=== PATIENT | female | born 1980 | race Caucasian/White ===

== ENCOUNTER 2023-06-21 14:44 | Emergency (ER) | payer BC, SELFPAY ==
[2023-06-21 14:46] VITALS: BP 112/82; PULSE 60; RESP 18; TEMP 36.6; O2SAT 98; BMI 23.3
--- NOTE | 2023-06-21 14:59 | XR_ITS ---
FINAL REPORT CLINICAL HISTORY: syncope smoker since age 14 COMPARISON: None FINDINGS: A single portable view of the chest was obtained. The heart size and pulmonary vascularity are within normal limits. The mediastinum is within normal limits. No acute pulmonary abnormality is identified. The bony thorax is intact. IMPRESSION: No active cardiopulmonary disease. Reviewed, Interpreted and Dictated by Chaka Whitt III, MD Transcribed by Parvin Guzman Authenticated and [facility]
--- NOTE | 2023-06-21 14:59 | CT_ITS ---
FINAL REPORT CLINICAL HISTORY: fall, head trauma, syncope COMPARISON: 06/12/2023 FINDINGS: Axial images of the head were obtained without contrast. Coronal and sagittal reformatted images were also obtained.This study was performed with techniques to keep radiation doses as low as reasonably achievable (ALARA). Individualized dose reduction techniques using automated exposure control or adjustment of mA and/or kV according to the patient's size were employed. There is no evidence of intracranial hemorrhage or mass. The ventricular size is within normal limits. There is no evidence of shift of the midline structures. No abnormal extra axial fluid collection is identified. No skull abnormality is seen on the bone window images. There is a right frontal scalp hematoma present. IMPRESSION: No acute intracranial abnormality. Right frontal scalp hematoma. Reviewed, Interpreted and Dictated by Chaka Whitt III, MD Transcribed by Parvin Guzman Authenticated and [facility]
--- NOTE | 2023-06-21 15:02 | HMH.EDGENADL ---
Discharge Plan Disposition Patient Disposition: Home, Self-Care Prescriptions Prescriptions: No Action buprenorphine-naloxone 8-2 mg tablet, sublingual 1 tab SUBLINGUAL DAILY Patient Comments: DISSOLVE 2 TABLETS UNDER THE TONGUE ONCE DAILY Referrals Follow up/Referrals: Gera Guidry MD [Staff Physician] - See instructions Provider,MD Chauncey [Primary Care Provider] - See instructions Activity Restrictions/Add. Instructions Additional Instructions/Restrictions: Call your family doctor to establish care for this visit to the emergency department and schedule follow-up within 48 hours to ensure improvement. If you have any worsening of your condition or any other concerning signs or symptoms, return to the emergency department or your primary care doctor for further evaluation. Take Tylenol 1000 mg every 6 hours (4 times daily) and ibuprofen 400 mg every 6 hours (4 times daily) as needed with food and water to prevent GI upset and kidney damage. Clinical Impressions Clinical Impression: Syncope Instructions Patient Instructions: DI for Seizure Disorder -- Adult, DI for Seizure (Not Epilepsy/Seizure Disorder), DI for Seizure Disorder -- Child Discharge ED Provider: Valeria Al General Adult HPI General Chief complaint: Seizure Stated complaint: seizure and fell and hit head Time Seen by Provider: 06/21/23 14:52 History of Present Illness HPI narrative: 43-year-old female with previous history of IV drug abuse currently on Suboxone, meloxicam as needed presenting with seizure-like activity. Patient states that she was at a gas station getting a piece of pizza, the next thing she remembers is waking up on the floor. Apparently the episode was filmed, but video was not available because she declined ambulance transport and came via private vehicle shortly thereafter. Patient did not bite her tongue or urinate on herself, did not lose continence of bowel either. She believes she hit her head because she has forehead tenderness with an associated hematoma. Denies neck or back pain, vision changes, unilateral deficits. She states she had 2 episodes like this in the past what she thinks was caused by taking too much Neurontin off the street. She also states she struggles with ADHD and does not have a psychiatrist or family doctor, so she buys stimulants off the street in order to treat her ADHD. Also denies any daily drinking, recent travel, or any other relevant history. Related Data Home Medications Medication Instructions Recorded Confirmed buprenorphine 8 mg-naloxone 2 mg 1 tab sublingual DAILY addiction 06/21/23 06/21/23 sublingual tablet Allergies Allergy/AdvReac Type Severity Reaction Status Date / Time CODEINE Allergy Unknown UNKNOWN Uncoded 12/04/22 13:45 [facility] Disclaimer: The information contained in this section may have been updated after the patient was seen, as this information can be updated by other users. Medical History (Updated 06/21/23 @ 19:20 by Ivan Hoskins MD) Depression Surgical History (Updated 12/04/22 @ 13:50 by GRETTA Alvarez) H/O: Social History (Updated 12/04/22 @ 13:52 by GRETTA Alvarez) Smoking Status: Current every day smoker alcohol intake: never substance use type: former substance user and crack/cocaine current occupational status: employed Travel in the last 8 weeks: Inside the [place] ROS Obtained: Yes All systems reviewed & no additional complaints except as documented Physical Exam General General appearance: alert, in no apparent distress and anxious Head Head exam: normocephalic and other (2 cm circular, firm hematoma right side of forehead. No evidence of open injury.) Eye Eye exam: Present normal appearance, PERRL and EOMI ENT ENT exam: Present mucous membranes moist, TM's normal bilaterally and other (No evidence of tongue bruising or bleeding, but patient edentulous) Neck N
--- NOTE | 2023-06-21 15:12 | ECG_ITS ---
APPROVED REPORT Exam: Resting ECG HR:59 bpm ECG Measurements Heart Rate 59 AXES VA 132 P 75 QRSd 92 QRS 88 QT 451 T 61 QTc 451 Conclusion SINUS BRADYCARDIA BORDERLINE ECG UNCONFIRMED REPORT Electronically signed by : Bob Stringer MD 06/22/2023 19:25:28
--- NOTE | 2023-06-21 15:14 | PC.NURSE ---
PT TO CT
--- NOTE | 2023-06-21 15:23 | PC.NURSE ---
PT RETURNED FROM CT
[2023-06-21 16:04] LABS: Basophils % 0.2 % (0.1-2.0); Eosinophils # 0.1 K/mm3 (0.0-0.4); Eosinophils % 1.2 % (0.1-12.0); Hematocrit 48.8 % (37.0-47.0); Hemoglobin 16.5 g/dL (12.2-16.2); Lymphocytes % 8.7 % (10-50); Mean Corpuscular HGB Conc 33.8 g/dL (31.8-35.4); Mean Corpuscular Hemoglobin 33.1 pg (27.0-31.2); Mean Corpuscular Volume 97.9 fl (81-99); Mean Platelet Volume 7.5 fl (7.4-10.4); Monocytes # 0.3 K/mm3 (0.1-1.0); Monocytes % 2.9 % (1.7-9.3); Neutrophils # 10.2 K/mm3 (1.8-7.8); Neutrophils % 87.1 % (37.0-80.0); Platelet Count 312 K/mm3 (142-424); Red Blood Count 4.99 M/mm3 (4.20-5.40); Red Cell Distribution Width 13.8 % (11.5-17.5); White Blood Count 11.7 K/mm3 (4.8-10.8)
[2023-06-21 16:09] LABS: MANUAL DIFFERENTIAL MANUAL DIFFERENTIAL (MANUAL DIFF)
[2023-06-21 16:10] LABS: Lactic Acid 1.2 mmol/L (0.7-2.1)
--- NOTE | 2023-06-21 16:17 | PC.NURSE ---
RESPIRATORY NOTIFIED OF [facility]
[2023-06-21 16:19] LABS: Alanine Aminotransferase 33 U/L (12-78); Albumin Level 4.6 g/dl (3.5-5.0); Albumin/Globulin Ratio 1.3 (1.1-1.8); Alkaline Phosphatase 80 U/L (38-126); Anion Gap 11.6 mEq/L (5-15); Aspartate Amino Transferase 42 U/L (14-36); Bilirubin,Total 0.4 mg/dl (0.2-1.3); Blood Urea Nitrogen 10 mg/dl (7-17); Calcium 9.1 mg/dl (8.4-10.2); Carbon Dioxide 33 mmol/L (22.0-30.0); Chloride 98 mmol/L (98-107); Creatine Kinase 69 U/L (30-135); Creatinine Clearance Estimated 92 mL/min (50-200); Estimated Glomerular Filt Rate 78 ml/min (>60); GFR (African American) 94 ML/MIN (>60); Globulin 3.6 g/dL (1.3-3.2); Glucose 120 mg/dl (74-100); Lymphocytes % 9 % (10-50); Monocytes % 1 % (2-9); Neutrophils % 90 % (42-76); Platelet Estimate Normal; Potassium 3.6 mmoL/L (3.5-5.1); RBC Morphology Normal; Sodium 139 mmol/L (136-145); Total Cells Counted 100; Total Protein,Serum 8.2 g/dl (6.3-8.2)
[2023-06-21 16:20] VITALS: BP 101/80; PULSE 62; O2SAT 94
[2023-06-21 16:23] LABS: VBG Base Excess 3.3 mmol/L (-2.4-2.3); VBG HCO3 29.6 mmol/L (23-30); VBG Oxygen Saturation 69.2 % (50-70); VBG PH 7.31 mmol/L (7.31-7.41); VBG Total CO2 31.4 mmol/L (23-27)
[2023-06-21 16:26] LABS: VBG PCO2 60.2 mmol/L (35-51)
[2023-06-21 16:30] VITALS: BP 117/82; PULSE 68; RESP 20; O2SAT 96
[2023-06-21 16:37] LABS: T4 (Thyroxine) 20.2 ug/dl (5.53-11.0)
--- NOTE | 2023-06-21 16:45 | PC.NURSE ---
Dr. Hoskins notified of vbg results
[2023-06-21 16:51] LABS: Troponin I < 0.01 ng/ml (0.00-0.034)
[2023-06-21 17:00] VITALS: BP 136/82; PULSE 58; O2SAT 95
[2023-06-21 17:50] LABS: Microscopic, Urine URINE MICROSCOPIC (MICROSCOPIC)
[2023-06-21 18:06] LABS: Appearance,Urine CLEAR (Clear); Bilirubin,Urine Negative (Negative); Blood, Urine 3+ (Negative); Color,Urine YELLOW (Yellow); Glucose,Urine (UA) Negative (Negative); Ketones,Urine Negative (Negative); Leukocyte Esterase,Urine Negative (Negative); Nitrate,Urine Negative (Negative); PH,Urine 7.5 (5.0-8.5); Protein,Urine TRACE (Negative)
[2023-06-21 18:09] LABS: Urine Pregnancy, HCG Qual. Negative (Negative)
[2023-06-21 18:19] LABS: Barbiturates Screen,Urine Negative ng/ml (<200)
[2023-06-21 18:20] LABS: Amphetamine/Metha Screen,Urine Positive ng/ml (<1000)
[2023-06-21 18:21] LABS: Benzodiazepines Screen,Urine Negative ng/ml (<200)
[2023-06-21 18:22] LABS: Cocaine Screen,Urine Negative ng/ml (<300); Methadone Screen,Urine Negative ng/ml (<300)
[2023-06-21 18:22] LABS: Bacteria,Urine Trace /lpf; WBC,Urine Occasional #/hpf (0-3)
[2023-06-21 18:23] LABS: Opiate Screen,Urine Negative ng/ml (<300); Phencyclidine Screen,Urine Negative ng/ml (<25)
[2023-06-21 18:28] LABS: Cannabinoid Screen,Urine Positive ng/ml (<50)
[2023-06-21 19:05] LABS: Troponin I 0.02 ng/ml (0.00-0.034)
[2023-06-21 19:24] VITALS: BP 131/72; PULSE 62; RESP 18; TEMP 36.6; O2SAT 95
== END 2023-06-21 19:25 | disposition home or self-care (01) ==
PROVIDERS: Emergency Medicine; Emergency Provider Student in an Organized Health Care Education/Training Program
DX: R55 Syncope and collapse (principal); R00.1 Bradycardia, unspecified; F17.210 Nicotine dependence, cigarettes, uncomplicated; W19.XXXA Unspecified fall, initial encounter; F15.90 Other stimulant use, unspecified, uncomplicated
CPT/HCPCS: 36415; 70450; 71045; 80053; 80305; 81001; 81025; 82550; 82803; 83605; 84436; 84443; 84484; 85007; 85025; 93005; 96361; 96374; 99285

== ENCOUNTER 2024-03-01 09:21 | Outpatient (CLI) | payer BC, SELFPAY ==
[2024-03-01 19:59] LABS: Benzodiazepines Screen,Urine Negative ng/ml (<200)
[2024-03-01 20:00] LABS: Amphetamine/Metha Screen,Urine Negative ng/ml (<1000); Barbiturates Screen,Urine Negative ng/ml (<200)
[2024-03-01 20:01] LABS: Methadone Screen,Urine Negative ng/ml (<300)
[2024-03-01 20:02] LABS: Cannabinoid Screen,Urine Positive ng/ml (<50); Cocaine Screen,Urine Negative ng/ml (<300)
[2024-03-01 20:03] LABS: Opiate Screen,Urine Negative ng/ml (<300)
[2024-03-01 20:04] LABS: Phencyclidine Screen,Urine Negative ng/ml (<25)
== END 2024-03-01 23:59 | disposition home or self-care (01) ==
LOC: LAB.DROPOF 03-02 09:22
PROVIDERS: PCP Nurse Practitioner Acute Care; Visit Provider Nurse Practitioner Acute Care
DX: Z79.899 Other long term (current) drug therapy (principal)
CPT/HCPCS: 80307

== ENCOUNTER 2024-04-26 14:04 | Outpatient (CLI) | payer BC, SELFPAY ==
[2024-04-26 19:11] LABS: Amphetamine/Metha Screen,Urine Positive ng/ml (<1000)
[2024-04-26 19:21] LABS: Barbiturates Screen,Urine Negative ng/ml (<200); Cannabinoid Screen,Urine Positive ng/ml (<50); Methadone Screen,Urine Negative ng/ml (<300); Opiate Screen,Urine Negative ng/ml (<300); Phencyclidine Screen,Urine Negative ng/ml (<25)
[2024-04-26 19:22] LABS: Benzodiazepines Screen,Urine Negative ng/ml (<200); Cocaine Screen,Urine Negative ng/ml (<300)
== END 2024-04-26 23:59 | disposition home or self-care (01) ==
LOC: LAB.DROPOF 04-27 14:04
PROVIDERS: PCP Nurse Practitioner Acute Care; Visit Provider Nurse Practitioner Acute Care
DX: Z79.899 Other long term (current) drug therapy (principal)
CPT/HCPCS: 80307

== ENCOUNTER 2025-03-16 07:28 | Emergency (ER) | payer OTHER, SELFPAY ==
[2025-03-16 07:34] VITALS: BP 155/75; PULSE 76; RESP 19; O2SAT 95
[2025-03-16 07:40] VITALS: BP 155/75; PULSE 86; RESP 20; TEMP 36.6; O2SAT 97; BMI 26.7
--- OUTSIDE RECORDS SUMMARY | 2025-03-16 07:43 | XMS_ITS | Data Portability ---
Author Organization [facility] [place] Address [address] [place] [address] Care Team Providers Care Stitch Separator Name Role Phone ANICETO ALVARADO Primary Care Provider [phone] Assessment No assessment recorded. Plan of Treatment Reminders Order Date Submit Date Provider Last Modified By Organization Details Last Modified Time Details Appointments None recorded. Lab None recorded. Referral neurologis t referral 2022 023 [facility] Charles Montenegro MD, [address] [place] [address] , [facility] [address], [place], [address], 4 08:50:54 behavioral health referral [address] , [place], [address], 4 09:07:48 Procedures None recorded. Surgeries None recorded. Imaging electroenc ephalogram [address] (Central Scheduling), [address] [place] [address] , [place], [address], 3 06:57:13 Medication Orders buspirone 7.5 mg tablet 2022 023 [facility], [address] [facility] [address] [facility] [address], [place], [place], [id number], 3 12:38:44 Patient TargetsNo targets recorded. Patient InstructionsNo instructions recorded. Reason for Referral Neurologist Referral for Ton ic-clonic seizure, non-refractory Referring Physician: Aniceto Alvarado [facility], Encounter Date: 07/07/2023 Behavioral Health Referral f or Attention deficit hyperactivity disorder Referring Physician: Aniceto Alvarado [facility], Encounter Date: 07/07/2023 Problems Name Problem SNOMED Code Status Onset Date Resolution Date Notes Provider Name and Address Organization Details Recorded Time Attention deficit hyperactiv ity disorder 026370731 Active 2022 Not Available [facility] 3 09:56:45 Tonic-clon ic seizure, non-refrac tory 4156613478304 02 Active 2022 [facility] null, [place] - [facility] [place] 3 07:58:01 Anxiety 88983196 Active 2022 [facility] null, [place] - [facility] [place] [facility] [place] 3 07:58:01 Problem Notes None recorded. Procedures Surgical History Date Name Laterality Status Provider Name and Address Organization Details Recorded Time delivery completed Silvestre Valle [place] - [facility] - [place] 07/07/2023 08:56:29 delivery completed Silvestre Valle [place] - [facility] - [place] 07/07/2023 08:56:31 Imaging Results None recorded. Procedure Notes None recorded. Medical Equipment None Reported. Allergies No known drug allergies Medications Name Sig Start Date Stop Date Status Note LastModified by Organization Details LastModified Time meloxicam 15 mg tablet TAKE ONE TABLET BY MOUTH EVERY DAY active Not Available Not Available No t Available propranolol 10 mg tablet TAKE ONE TABLET BY MOUTH THREE TIMES DAILY DIRECTED FOR difficulty maintaining attention AND anxiety active Not Available Not Available Not Available buspirone 7.5 mg tablet Take 1 tablet 3 times a day by oral route. 2022 active Not Available Not Available Not Avai lable atomoxetine 40 mg capsule TAKE ONE CAPSULE BY MOUTH EVERY MORNING FOR focus AND attention active Not Available Not Available No t Available buprenorphin e 8 mg-naloxone 2 mg sublingual tablet DISSOLVE 2 TABLETS UNDER THE TONGUE ONCE DAILY active Not Available Not Available No t Available buprenorphin e 8 mg-naloxone 2 mg sublingual film DISSOLVE 2 FILMS UNDER THE TONGUE ONCE DAILY active Not Available Not Available N ot Available Vitals Date Recorded Body height Body mass index (BMI) Body weight Body temperature Oxygen saturation Oxygen saturation in Arterial blood by Pulse oximetry Heart rate Respiratory rate Systolic And Diastolic Provider Name and Address Organization Details Last Updated DateTime 3 162.56 cm 26.3 kg/m2 31599.6 3 g 98.1 [degF] 96 % 96 % 68 /min 18 /min 131/89 mm[Hg] Silvestre vasques [place] - [facility] & [place] 3 08:54:58 Social History None recorded. Functional Status None recorded. Mental Status None recorded. Family History Relationship Description Onset Age of this Age Resolved Age Notes LastModified by Organization Details LastModified Time Mother History of malignant neoplasm of cervix CHART[employer] Not available 09/2022 09:56:45 Medical History No medical history recorded. Gynecological HistoryNo gynecological history recorded. Obstetrics History GPAL:G 2 P 0 0 0 0 Past Encounters Encounter ID Performer Location Encounter Start Date Encounter Closed Date Diagnosis/Indication Diagnosis SNOMED-CT Code Diagnosis ICD10 Code Diagnosis Note [id number] Aniceto Alvarado MD [address] [place] [address] 07/07/2023 08:33:22 07/07/2023 09:23:56 Tonic-clonic seizure, non-refractory 0839720261 89029 G40.409 Probable pseudo pseudo-sei zure. We will proceed with EEG. Obtain records from ED visit. No treatment at this time. See back in 6 weeks. Attention deficit hyperactivity disorder 733569937 F90.9 Patient describes history. Explained that she needs to see behavioral health specialist to manage this. Referral was made. Anxiety 60225408 F41.9 Appears significan t. I explained that red bull energy drinks were very bad for anxiety and recommend stopping them. Prescripti on given for buspirone see back in 6 weeks [id number] [facility] at [address] [place] [address] 12/20/2023 10:10:08 12/20/2023 11:13:59 [id number] [facility] at [address] [place] [address] 01/13/2024 09:20:59 01/13/2024 11:13:56 [id number] LON WOODSON, JOSE GUADALUPEHNRoslyn Mcdonald [facility] at [address] [place] [address] 01/24/2024 08:33:01 02/01/2024 08:23:38 Health Concerns Section Related Observation LastModified by Organization Detai ls LastModified Time None Recorded Concern Status LastModified by Organization Details LastModified Time None Recorded Advance Directives Directive None Recorded Payers Insurance Date Sequence Insurance Name Policy Number Policy Melvin Covered Member ID Melvin Member ID Guarantor Name 04/03/2024 1 UNSPECIFIED REMIT PAYOR Pilar Rosa 03/25/2024 1 [employer] [id number] Pilar Moe [id number] Pilar Moe Notes Date Note Type Note Provider Name and Address Organization Details Recorded Time 07/07/2023 text/html 43-year-old fema le here as a new patient.Patient had an episode work about 2 weeks ago. Was a tonic-clonic episode at work she remembers the episode and remembers getting up off floor. She went to the emergency room [facility] and was evaluated. She states she had a CT scan and MRI and blood work that was read as normal. I do not have those results. Patient has no history of previous episode. Patient reports history of ADHD. She is been by an occasional Adderall illegally and taking it. She also is on Suboxone for opioid dependency only takes it when she feels like she needs it. Patient denies use of illicit drugs otherwise.Patient reports significant anxiety. She has been on medication for this in the past does not recall what medicine she is taken. Patient has psychologist past not recently.Patient denies any focal neurological symptoms. She does feel anxious. Aniceto Alvarado MD [address] [facility] [place], [place], [address], [facility] - [facility] [place] 07/07/2023 09:40:35 OBGyn Episode No OBEpisode recorded.
--- NOTE | 2025-03-16 07:45 | CT_ITS ---
FINAL REPORT TECHNIQUE: Oral and IV contrast enhanced exam This study was performed with techniques to keep radiation doses as low as reasonably achievable, (ALARA). Individualized dose reduction techniques using automated exposure control or adjustment of mA and/or kV according to the patient's size were employed. CLINICAL HISTORY: LUQ pain COMPARISON: None FINDINGS: Abdomen: Lung bases are clear. The gallbladder is unremarkable. Liver has an unremarkable CT appearance. The spleen, pancreas and adrenal glands are unremarkable. Kidneys show no mass or obstruction. No bowel obstruction or fluid collection is seen, with moderate fecal impaction. Pelvis: The appendix is not visualized, however no secondary signs of appendicitis are seen. There is a small amount of fluid in the proximal uterine cavity, that may be secondary to the patient's menses. The ovaries are unremarkable in appearance. Pelvic bowel loops are unremarkable. No fluid collection or adenopathy is seen. IMPRESSION: 1. Moderate fecal impaction without evidence of obstruction. 2. Small amount of fluid in the proximal uterine cavity, possibly secondary to the patient's menses. Nonemergent follow-up pelvic ultrasound should be considered. Reviewed, Interpreted and Dictated by Marcia Alvarez MD Transcribed by Parvin Guzman Authenticated and [facility]
--- NOTE | 2025-03-16 07:45 | XR_ITS ---
FINAL REPORT CLINICAL HISTORY: LUQ Pain, Productive cough COMPARISON: None FINDINGS: There are multifocal left lung airspace infiltrates, consistent with pneumonia. There is no evidence of effusion or pneumothorax. Mediastinum is unremarkable. Heart size is normal. IMPRESSION: Multifocal left lung airspace disease, consistent with pneumonia. Reviewed, Interpreted and Dictated by Marcia Alvarez MD Transcribed by Parvin Guzman Authenticated and [facility]
--- NOTE | 2025-03-16 07:53 | ED_ITS ---
Discharge Plan Disposition Patient Disposition: Home, Self-Care Condition: Good Prescriptions Prescriptions: New polyethylene glycol 3350 [ClearLax] 17 gram/dose powder 17 g PO BID Qty: 238 0RF sennosides [senna] 8.6 mg tablet 8.6 mg PO BID Qty: 60 0RF No Action dextroamphetamine-amphetamine [Adderall] 10 mg tablet 10 mg PO DAILY Qty: 28 0RF Rx Instructions: Take at 1700. dextroamphetamine-amphetamine [Adderall] 20 mg tablet 20 mg PO BID Qty: 56 0RF Rx Instructions: Take at 6 am and at noon. buprenorphine-naloxone 8-2 mg tablet, sublingual 2 tab SUBLINGUAL DAILY Patient Comments: DISSOLVE 2 TABLETS UNDER THE TONGUE ONCE DAILY Referrals Follow up/Referrals: Provider,Referral, MD [Primary Care Provider, Medical] - See instructions Activity Restrictions/Add. Instructions Additional Instructions/Restrictions: Please take Miralax and Senna at home as prescribed alongside 2 L of gatorade. If you are unable to pass a bowel movement OR if you are able to pass bowel movements and your pain persists over the coming days despite passing a bowel movement, please return to the ER for further evaluation. Clinical Impressions Clinical Impression: Constipation Instructions Patient Instructions: Constipation Print Language Print Language: Korean Discharge ED Provider: Jose Colón Adult HPI General Chief complaint: Abdominal Pain Stated complaint: Left Side Rib Pain; Unable to sleep Time Seen by Provider: 03/16/25 07:33 Mode of Arrival: Ambulatory Source of Information: Patient Description of Symptoms (Recalled from ER Triage Doc. by RN): Patient presents to ED for LUQ abdominal pain since Wednesday night. Denies n/v/d. No known injury. Describes pain as a dull ache. No hx of abdominal surgeries besides 2 c- sections. History of Present Illness HPI narrative: This is a 45-year-old female patient, with past medical history of IV drug use currently on Suboxone, who is presenting to the emergency department today for evaluation of pain in her left upper quadrant. She describes this pain beginning 2 days ago and persisting and worsening since onset. She states that there is a bit of a positional component to this pain as it will sometimes worsen with lying flat and improved by flexion of her torso and leaning forward. She is adamant that she is not experiencing chest pain or shortness of breath. She has not had any fevers. No recent illnesses. She has had no nausea or vomiting, no diarrhea, no hematochezia or melena. She does tell me that she has been experiencing some constipation and she is not producing bowel movements daily. She questions whether her symptoms are due to constipation. Otherwise she is not experiencing any vaginal bleeding or discharge. She is not having dysuria, hematuria, or urinary frequency. Related Data Home Medications ?Medication ?Instructions ?Recorded ?Confirmed buprenorphine 8 mg-naloxone 2 mg 2 tab sublingual JOLENE Y addiction 03/28/24 03/16/25 sublingual tablet Previous Rx's ?Medication ?Instructions ?Recorded dextroamphetamine-amphetamine 10 10 mg PO DAILY #28 ta bs 02/28/25 mg tablet (Adderall) dextroamphetamine-amphetamine 20 20 mg PO BID #56 tabs 02/28/25 mg tablet (Adderall) polyethylene glycol 3350 17 17 g PO BID #238 grams 07/31 gram/dose oral powder (ClearLax) sennosides 8.6 mg tablet (senna) 8.6 mg PO BID #60 tab s 03/16/25 Allergies Allergy/AdvReac Type Severity Reaction Status Date / Time codeine AdvReac Intermediate Other Verified 03/16/25 08:32 [facility] Disclaimer: The information contained in this section may have been updated after the patient was seen, as this information can be updated by other users. Medical History History of ADHD Depression Surgical History H/O: Family History Family/Other Diabetes Mother Cancer Cervical Social History Smoking Status: Current every day smoker alcohol intake: never substance use type: former substance user and crack/cocaine current occupational status: employed Travel in the last 8 weeks?: Inside the [place] adopted: No lives independently: Yes marital status: single Have you lived/traveled outside [place] in past 30 days?: No Contact w/someone who lives/traveled outside [place] past 30 days?: No Exposure to someone with infectious disease in past 14 days?: No Do you have a fever (greater than 100.4 F or 38 C)?: No Have you tested positive for COVID-19?: No Exposed to someone with COVID-19 in past 14 days?: No Do you have a sore throat?: No Do you have a cough?: No Do you have any weakness?: No Do you have any diarrhea?: No Are you experiencing any unusual bleeding?: No Do you have any muscle aches/pain?: No Do you have any abdominal pain?: No Are you experiencing loss of taste or smell?: No Other Medical History Have you received the Pneumonia Vaccine: No ROS Obtained: Yes Systems reviewed as appropriate & no additional complaints except as documented Physical Exam General General appearance: alert and in no apparent distress Head Head exam: atraumatic and normocephalic Eye Eye exam: Present PERRL and EOMI ENT ENT exam: Present normal oropharynx and mucous membranes moist Neck Neck exam: Present full ROM and trachea midline Respiratory Respiratory exam: Present normal lung sounds bilaterally; Absent respiratory distress Cardiovascular Cardiovascular exam: Present regular rate and normal rhythm Abdominal Exam Abdominal exam: Present soft; Absent tenderness Extremities Exam Extremities exam: Present normal inspection; Absent tenderness Back Exam Back exam: Absent vertebral tenderness Neurological Exam Neurological exam: Present alert and oriented X3 Skin Skin exam: Present warm and dry Medical Decision Making Medical Records Medical records reviewed: Yes I reviewed the patient's medical records. Screening: Per USPSTF and CDC recommendations, given the prevalence of disease in our region, it is our hospital?s policy to screen for HIV and viral Hepatitis for all patients aged 18 and over and those with ongoing risk factors. Vance Inquiry Pt receiving controlled substance: No Vance was queried for this patient: No Vital Signs: 03/16/25 07:34 03/16/25 07:40 Temperature 98 F Temperature Source Oral Pulse Rate 76 Pulse Rate [Right Radial] 86 Respiratory Rate 19 20 Blood Pressure 155/75 H Blood Pressure [Right Arm] 155/75 H Blood Pressure Mean 101 Blood Pressure Mean [Right Arm] 101 02 Sat by Pulse Oximetry 95 97 Oxygen Delivery Method Room Air Room Air Lab Data Lab Results 03/16/25 07:55: WBC 10.2, RBC 4.69, Hgb 15.0, Hct 44.0, MCV 93.8, MCH 32.0 H, MCHC 34.1, RDW 13.4, Plt Count 223, MPV 9.0, Neut % (Auto) 66.7, Lymph % (Auto) 26.1, [place] % (Auto) 4.7, Eos % (Auto) 1.9, Baso % (Auto) 0.4, Neut # (Auto) 6.8, Lymph # (Auto) 2.7, [place] # (Auto) 0.5, Eos # (Auto) 0.2, Baso # (Auto) 0.0, Sodium 140, Potassium 3.9, Chloride 101, Carbon Dioxide 32 H, Anion Gap 10.9, BUN 11, Creatinine 0.60, Estimated Creat Clear 142, Estimated GFR 107, Est GFR ( Amer) 130, Glucose 105 H, Calcium 9.1, Total Bilirubin 0.5, AST 34, ALT 26, Alkaline Phosphatase 82, Troponin I < 0.01, Total Protein 7.5, Albumin 4.2, Globulin 3.3 H, Albumin/Globulin Ratio 1.3, Lipase 38, Serum HCG, Qual Negative 03/16/25 08:05: Urine Color Yellow, Urine Appearance Clear, Urine pH 6.5, Ur Specific [place] 1.020, Urine Protein Negative, Urine Glucose (UA) Negative, Urine Ketones Negative, Urine Blood 2+ A, Urine Nitrate Negative, Urine Bilirubin 1+ A, Urine Urobilinogen 1.0, Ur Leukocyte Esterase Negative, Urine RBC 5-10, Urine WBC Occasional, Ur Squamous Epith Cells 5-10, Urine Bacteria 1+, Urine Mucus Trace 03/16/25 08:10: Lactate 0.9 03/16/25 07:55 03/16/25 07:55 Orders (Tests/Meds): ED MEDICATIONS Discontinued Medications Generic Name Dose Route Start Last Admin Trade Name Forrest PRAnamaria Reason Stop Dose Admin Famotidine 20 mg 03/16/25 07:45 03/16/25 07:56 Famotidine 20mg Tablet PO 03/16/25 07:46 20 mg ONCE ONE Administration Iopamidol 75 ml 03/16/25 08:36 03/16/25 08:38 Iopamidol-370 (76%);100ml Bottle IV 03/16/25 08:37 75 ml ONCE ONE Administration Sodium Chloride 10 ml 03/16/25 08:36 03/16/25 08:38 Sodium Chloride 0.9% 10ml Syr (Rad Only) IV 03/16/25 08:37 10 ml ONCE ONE Administration ORDERS Category Date Time Status CT abdomen pelvis w con Stat Cat Scan 03/16/25 07:45 Completed Portable CXR [XR chest portable] Stat Exams 03/16/25 07:45 Taken CBC w/Auto Diff [Complete Blood Count Auto Diff] Stat Lab 03/16/25 07:55 Completed CMP [Comprehensive Metabolic Panel] Stat Lab 03/16/25 07:55 Completed Lactate Venous Stat Lab 03/16/25 07:45 Ordered Lactic Acid Stat Lab 03/16/25 08:10 Completed Lipase Stat Lab 03/16/25 07:55 Completed Serum [HCG Qualitative, Serum] Stat Lab 03/16/25 07:55 Completed Troponin I Stat Lab 03/16/25 07:55 Completed Urinalysis and Microscopic Stat Lab 03/16/25 08:05 Completed ECG Data Tracing #1: I reviewed this ECG and interpreted as documented below: EKG personally interpreted by me demonstrates normal sinus rhythm with a rate of 69 bpm, normal axis, no [place] prolongation, narrow QRS, no QTc prolongation. No ST elevation or depression. No overt signs of ischemia or arrhythmia Medical Decision Narrative: In summary, this is a 45-year-old female patient who is presenting to the emergency department today for evaluation of left upper quadrant pain. She does not have any accompanying symptoms with this pain. Her comorbidities include a history of IV drug use remotely for which she is currently on Suboxone. She is not currently an IV drug user. On initial evaluation of the patient they were resting comfortably in no acute distress and nontoxic in appearance. They are hemodynamically stable, saturating well room air, and are neurologically intact. On examination of the patient she appears well overall. She does have a cough that she states is consistent with baseline and she feels like this is secondary to smoking a pack of cigarettes per day. Her heart and lungs are clear to auscultation bilaterally. Her abdominal exam is benign without tenderness, however she is able to point with 1 finger exactly to the spot in her left upper quadrant that is hurting. She has had no traumatic injuries over her rib cage and her rib cage is nontender and there is no overlying skin changes. Differential diagnosis includes gastritis, pancreatitis, splenic infarction, lower lobar pneumonia, constipation, pneumoperitoneum, intra-abdominal abscess, others. Workup was initiated with hematologic labs as well as a chest x-ray, EKG, and CT scan of the abdomen pelvis. Labs personally interpreted by me demonstrate no actionable abnormalities. No leukocytosis. Lactate is normal. Her pains been going on for 2 days and her initial troponin is less than 0.01 so we will not obtain a delta troponin. Her lipase is within normal limits and she does not demonstrate any evidence of transaminitis. CT scan of the abdomen and pelvis personally interpreted by me demonstrates no large pneumoperitoneum. The entire large bowel is filled with stool. Official radiology read is pending. We have treated the patient's pain in the emergency department with 20 mg of famotidine. On repeat reassessment she does state that her pain is mildly improved, but pain has not resolved. The patient CT scan has resulted and radiology feels that she has a significant stool burden with evidence of fecal impaction for which they stated we should correlate clinically. I have offered manual disimpaction vs. an enema here while she is in the emergency department to see if this relieves her pain. The patient feels very strongly that she does not want this intervention here in the emergency department. I I have offered to prescribe enemas for her to go home with but she also has apprehension about performing enemas on herself at home. We have had a shared decision-making discussion, and have decided to discharge her home with her prescription for MiraLAX and senna. I have asked her to take this at home alongside a liter of Gatorade to clean out her bowels. I have instructed her to return to the emergency department if she has an adequate cleanout of her bowel and is still having persistent pain over the next couple of days. The patient acknowledges understanding. At this time all questions have been answered and all parties are agreeable with the decision to discharge home Critical Care Critical Care Time Critical Care Time: No
[2025-03-16] MEDS: FAMOTIDINE 20MG TABLET 20 MG PO (07:56)
--- NOTE | 2025-03-16 08:01 | ECG_ITS ---
APPROVED REPORT Exam: Resting ECG HR:69 bpm ECG Measurements Heart Rate 69 AXES [place] 132 P 77 QRSd 90 QRS 83 QT 405 T 59 QTc 425 Conclusion SINUS RHYTHM NORMAL ECG Electronically signed by : Jose Colón, 03/16/2025 16:50:02
[2025-03-16 08:06] LABS: Hematocrit 44.0 % (37.0-47.0); Hemoglobin 15.0 g/dL (12.2-16.2); Immature Granulocytes % 0.2 %; Mean Corpuscular HGB Conc 34.1 g/dL (31.8-35.4); Mean Corpuscular Hemoglobin 32.0 pg (27.0-31.2); Mean Corpuscular Volume 93.8 fl (81-99); Nucleated Red Blood Cells % 0 %; Platelet Count 223 K/mm3 (142-424); Red Blood Count 4.69 M/mm3 (4.20-5.40); Red Cell Distribution Width-SD 46.2 fL; White Blood Count 10.2 K/mm3 (4.8-10.8)
[2025-03-16 08:08] LABS: Microscopic, Urine URINE MICROSCOPIC (MICROSCOPIC)
[2025-03-16 08:20] LABS: Alanine Aminotransferase 26 U/L (12-78); Albumin Level 4.2 g/dl (3.5-5.0); Albumin/Globulin Ratio 1.3 (1.1-1.8); Alkaline Phosphatase 82 U/L (38-126); Anion Gap 10.9 mEq/L (5-15); Aspartate Amino Transferase 34 U/L (14-36); Bilirubin,Total 0.5 mg/dl (0.2-1.3); Blood Urea Nitrogen 11 mg/dl (7-17); Calcium 9.1 mg/dl (8.4-10.2); Carbon Dioxide 32 mmol/L (22.0-30.0); Chloride 101 mmol/L (98-107); Creatinine Clearance Estimated 142 mL/min (50-200); Creatinine,Serum 0.60 mg/dl (0.52-1.04); Estimated Glomerular Filt Rate 107 ml/min (>60); GFR (African American) 130 ML/MIN (>60); Globulin 3.3 g/dL (1.3-3.2); Glucose 105 mg/dl (74-100); Lipase 38 U/L (23-300); Potassium 3.9 mmoL/L (3.5-5.1); Sodium 140 mmol/L (136-145); Total Protein,Serum 7.5 g/dl (6.3-8.2)
[2025-03-16 08:24] LABS: Color,Urine YELLOW (Yellow); Glucose,Urine (UA) Negative (Negative); Ketones,Urine Negative (Negative); Leukocyte Esterase,Urine Negative (Negative); PH,Urine 6.5 (5.0-8.5); Protein,Urine Negative (Negative); Specific Gravity, Urine 1.020 (1.005-1.030); Urobilinogen,Urine 1.0 EU/dl (0.2)
[2025-03-16 08:25] LABS: HCG Qualitative, Serum Negative (Negative)
[2025-03-16] MEDS: SODIUM CHLORIDE 0.9% 10ML SYR (RAD ONLY) 10 ML IV (08:38)
[2025-03-16] MEDS: IOPAMIDOL-370 (76%);100ML BOTTLE 75 ML IV (08:38)
[2025-03-16 08:41] LABS: Bacteria,Urine 1+ /lpf; Bilirubin,Urine 1+ (Negative); Mucus,Urine Trace /lpf; WBC,Urine Occasional #/hpf (0-3)
[2025-03-16 08:42] LABS: Troponin I < 0.01 ng/ml (0.00-0.034)
--- NOTE | 2025-03-16 08:43 | PC.NURSE ---
RAD at bedside
[2025-03-16 09:29] VITALS: BP 140/80; PULSE 72; RESP 17; TEMP 36.7; O2SAT 96
== END 2025-03-16 09:44 | disposition home or self-care (01) ==
PROVIDERS: Emergency Provider Student in an Organized Health Care Education/Training Program
DX: R10.12 Left upper quadrant pain (principal); K59.00 Constipation, unspecified; F17.210 Nicotine dependence, cigarettes, uncomplicated
CPT/HCPCS: 71045; 74177; 80053; 81001; 83605; 83690; 84484; 84703; 85025; 93005; 99285; Q9967